=== PATIENT | female | born 1980 | race Caucasian/White ===

== ENCOUNTER → 2018-12-09 | Outpatient (CLI) | payer BC ==
[~2018-12-09] MED LIST: GUAIATUSSIN AC10 ML PO; LEVAQUIN 500 M500 M2 PO; PEPCID20 MG PO; PREDNISONE 10 M10 MG PO; SINGULAIR 10 MG10 M1 PO; TESSALON PERLE100 M1 PO
== END ==
LOC: M.RAD 12:20
DX: J45.901 Unspecified asthma with (acute) exacerbation (principal); Z90.49 Acquired absence of other specified parts of digestive tract

== ENCOUNTER → 2020-01-09 | Outpatient (CLI) | payer BC | LOC: M.RAD 16:05 | DX: J45.40 Moderate persistent asthma, uncomplicated (principal); E55.9 Vitamin D deficiency, unspecified; E03.9 Hypothyroidism, unspecified; F41.8 Other specified anxiety disorders; J98.11 Atelectasis ==